=== PATIENT | male | born 1995 | race Caucasian/White ===

== ENCOUNTER 2023-10-17 16:19 | Emergency (ER) | payer OTHER ==
[~2023-10-17] VITALS: Ht 167.6 cm; Wt 60.0 kg
[2023-10-17 16:50] VITALS: BP 107/78; PULSE 74; RESP 18; TEMP 98.1; O2SAT 98
== END 2023-10-17 18:27 | disposition left against medical advice (07) ==
LOC: ER 16:19
DX: R45.851 Suicidal ideations (principal); F31.9 Bipolar disorder, unspecified
CPT/HCPCS: 99281